=== PATIENT | female | born 1995 | race American Indian/Alaskan Native ===

== ENCOUNTER 2019-05-04 18:16 | Emergency (ER) | payer SELFPAY ==
--- NOTE | 2019-05-04 18:39 | Emergency Department Report ---
Blank Doc - Documentation Documentation: This is a 23-year-old female that presents with vaginal bleeding and pelvic pa in. This initial assessment/diagnostic orders/clinical plan/treatment(s) is/are subject to change based on patient's health status, clinical progression and re- assessment by fellow clinical providers in the ED. Further treatment and workup at subsequent clinical providers discretion. Patient/guardians urged not to elope from the ED as their condition may be serious if not clinically assessed and managed. Initial orders include: 1- Patient sent to [facility] for further evaluation and treatment 2- labs 3- UA
[2019-05-04 19:29] LABS: Hematocrit 36.5 % (30.3-42.9); Hemoglobin 11.9 gm/dl (10.1-14.3); Mean Corpuscular HGB Conc 33 % (30-34); Mean Corpuscular Volume 83 fl (79-97); Platelet Count 280 K/mm3 (140-440); Red Blood Count 4.41 M/mm3 (3.65-5.03); Red Cell Distribution Width 13.5 % (13.2-15.2)
[2019-05-04 19:37] LABS: Basophils % (Auto) 0.3 % (0.0-1.8); Eosinophils # (Auto) 0.1 K/mm3 (0.0-0.4); Eosinophils % (Auto) 0.9 % (0.0-4.3); Lymphocytes # (Auto) 3.3 K/mm3 (1.2-5.4); Lymphocytes % (Auto) 38.8 % (13.4-35.0); Monocytes # (Auto) 0.6 K/mm3 (0.0-0.8); Monocytes % (Auto) 6.4 % (0.0-7.3)
[2019-05-04 20:00] LABS: Bilirubin,Urine NEG (Negative); Blood,Urine NEG (Negative); Color,Urine Yellow (Yellow); Mucus,Urine 3+ /HPF; Urobilinogen,Urine < 2.0 mg/dL (<2.0)
[2019-05-04 21:03] VITALS: BP 99/54
[2019-05-04] MEDS ORDERED: ULTRAM PO ONE (21:56)
[2019-05-04] MEDS ORDERED: NACL 0.9% 1000 ML 1,000 ML IV ONE (21:57)
--- NOTE | 2019-05-04 22:02 | Emergency Department Report ---
ED Female HPI - General Chief complaint: Abdominal Pain Stated complaint: IRREGULAR BLEEDING/ABD PAIN Time Seen by Provider: 05/04/19 18:38 Source: patient Mode of arrival: Ambulatory Limitations: No Limitations - History of Present Illness Initial comments: This is a 23-year-old female that presents with vaginal bleeding and pelvic pain. pt states hx of AUB no concern for STI, no n/v no fever no chills states using 6 pads daily for 2 months , has not been able to secure [facility] appointment. Complaint: vaginal bleeding Onset/Timin -: month(s) Radiation: suprapubic Severity: moderate Severity scale (0 -10): 4 Quality: cramping Consistency: constant Improves with: none Worsens with: none Are you Now?: No Last Menstrual Period: 03/10/19 EDC: 12/15/19 Associated Symptoms: vaginal bleeding, abdominal pain (abdominal cramping ). denies: vaginal discharge, nausea/vomiting, fever/chills, dysuria, hematuria - Related Data Sexually active: Yes : 1 Para: 1 A: 0 Previous Rx's Medication Instructions Recorded Last Taken Type Ibuprofen [Motrin 800 MG tab] 800 mg PO Q8HR PRN #30 tablet 05/05/19 Unknown Rx Allergies Allergy/AdvReac Type Severity Reaction Status Date / Time Penicillins Allergy Swelling Verified 05/04/19 18:17 ED Review of Systems ROS: Stated complaint: IRREGULAR BLEEDING/ABD PAIN Other details as noted in HPI Constitutional: denies: chills, fever Eyes: denies: eye pain, eye discharge, vision change ENT: denies: ear pain, throat pain Respiratory: denies: cough, shortness of breath, wheezing Cardiovascular: denies: chest pain, palpitations Endocrine: no symptoms reported Gastrointestinal: abdominal pain. denies: nausea, vomiting, diarrhea Genitourinary: abnormal menses. denies: urgency, dysuria, frequency, hematuria, discharge Musculoskeletal: back pain. denies: joint swelling, arthralgia Skin: denies: rash, lesions Neurological: denies: headache, weakness, paresthesias Psychiatric: denies: anxiety, depression Hematological/Lymphatic: denies: easy bleeding, easy bruising ED Past Medical Hx - Past Medical History Previous Medical History?: No - Surgical History Additional Surgical History: c sect x 1 - Social History Smoking Status: Never Smoker Substance Use Type: None - Medications Home Medications: Home Medications Medication Instructions Recorded Confirmed Last Taken Type Ibuprofen [Motrin 800 MG tab] 800 mg PO Q8HR PRN #30 tablet 05/05/19 Unknown Rx ED Physical Exam - General Limitations: No Limitations General appearance: alert, in no apparent distress - Head Head exam: Present: atraumatic, normocephalic - Eye Eye exam: Present: normal appearance, PERRL Pupils: Present: normal accommodation - ENT ENT exam: Present: mucous membranes moist - Neck Neck exam: Present: normal inspection, full ROM. Absent: tenderness, lymphadenopathy, thyromegaly - Respiratory Respiratory exam: Present: normal lung sounds bilaterally. Absent: respiratory distress, wheezes, stridor, chest wall tenderness - Cardiovascular Cardiovascular Exam: Present: regular rate, normal rhythm, normal heart sounds. Absent: systolic murmur, diastolic murmur, rubs, gallop - GI/Abdominal GI/Abdominal exam: Present: soft, normal bowel sounds. Absent: distended, tenderness, guarding, rebound, rigid, bruit, hernia - Expanded GI/Abdominal Exam Expanded GI/Abdominal exam: Absent: psoas sign, obturator sign, heel tap sign, Alst's sign, Rovsing's sign, tenderness at Mcburney's Point, ascites - Rectal Rectal exam: Present: deferred - Extremities Exam Extremities exam: Present: normal inspection, full ROM, normal capillary refill. Absent: tenderness, pedal edema, joint swelling, calf tenderness - Back Exam Back exam: Present: normal inspection, full ROM. Absent: tenderness, CVA tenderness (R), CVA tenderness (L), muscle spasm, rash noted - Neurological Exam Neurological exam: Present: alert, oriented X3, CN II-XII intact, normal gait, reflexes normal. Absent: motor sensory deficit - Psychiatric Psychiatric exam: Present: normal affect, normal mood - Skin Skin exam: Present: warm, dry, intact, normal color. Absent: rash ED Course Vital Signs 05/04/19 05/04/19 18:39 21:02 Temperature 98.4 F 99.4 F Pulse Rate 68 55 L Respiratory 18 18 Rate Blood Pressure 118/80 Blood Pressure 99/54 [Left] O2 Sat by Pulse 100 100 Oximetry ED Medical Decision Making - Lab Data Result diagrams: 05/04/19 19:02 Labs 0705/04/19 05/04/19 18:50 19:02 19:02 WBC 8.7 RBC 4.41 Hgb 11.9 Hct 36.5 MCV 83 MCH 27 L MCHC 33 RDW 13.5 Plt Count 280 Lymph % (Auto) 38.8 H Stewart % (Auto) 6.4 Eos % (Auto) 0.9 Baso % (Auto) 0.3 Lymph # 3.3 Stewart # 0.6 Eos # 0.1 Baso # 0.0 Seg Neutrophils % 53.6 Seg Neutrophils # 4.6 HCG, Qual Negative Urine Color Yellow Urine Turbidity Clear Urine pH 5.0 Ur Specific [place] 1.036 H Urine Protein 30 mg/dl Urine Glucose (UA) Neg Urine Ketones Neg Urine Blood Neg Urine Nitrite Neg Urine Bilirubin Neg Urine Urobilinogen < 2.0 Ur Leukocyte Esterase Neg Urine WBC (Auto) 1.0 Urine RBC (Auto) 4.0 U Epithel Cells (Auto) 1.0 Urine Mucus 3+ - Radiology Data Radiology results: report reviewed, image reviewed Ordering Physician: ROBIN COLE NP Date of Service: 05/04/19 Procedure(s): US transvaginal Accession Number(s): [id number] cc: ROBIN COLE NP ULTRASOUND PELVIS INDICATION: Abdominal pain. Vaginal bleeding. TECHNIQUE: Transabdominal and Transvaginal. Duplex Color Doppler used: Yes. COMPARISON: None available FINDINGS: Uterus: Present. Size: 8.5 x 4.0 x 6.0 cm. Endometrial complex: Normal thickness, measuring 0.3 cm. A trace amount of fluid is present along the endometrial canal. Mass lesions: None. Additional findings: None. Right Ovary: Size: 2.3 x 2.1 x 1.8 cm Blood flow: Normal. Cyst or mass: None. Left Ovary: Size: 1.9 x 1.3 x 1.4 cm Blood flow: Normal. Cyst or mass: None. Urinary Bladder: Normal. Free Fluid: Minimal free fluid is likely physiologic. Additional Findings: None. IMPRESSION: No acute sonographic abnormality of the pelvis. Signer Name: Joshua Perkins MD Signed: 05/05/2019 12:15 AM Workstation Name: [id number] Transcribed By: HEMANTH Dictated By: Joshua Perkins MD Electronically Authenticated By: Joshua Perkins MD Signed Date/Time: 05/05/1914 DD/ TD/TT: - Medical Decision Making US normal no fibroids no ovarian cyst plan: ibuprofen prn pain follow up with [facility] in 2-3 days pt verbalized agreement and understanding of discharge plan. Critical care attestation.: If time is entered above; I have spent that time in minutes in the direct care of this critically ill patient, excluding procedure time. ED Disposition Clinical Impression: Abnormal uterine bleeding (AUB), Dysmenorrhea Disposition: TO HOME OR SELFCARE Is pt being admited?: No Condition: Fair Instructions: Dysmenorrhea (ED) Prescriptions: Ibuprofen [Motrin 800 MG tab] 800 mg PO Q8HR PRN #30 tablet PRN Reason: Pain , Severe (7-10) Referrals: [facility] MD LIZ [Primary Care Provider] - 3-5 Days Forms: Work/School Release Form(ED) Time of Disposition: 00:29
--- NOTE | 2019-05-05 00:20 | Ultrasound Report ---
ULTRASOUND PELVIS INDICATION: Abdominal pain. Vaginal bleeding. TECHNIQUE: Transabdominal and Transvaginal. Duplex Color Doppler used: Yes. COMPARISON: None available FINDINGS: Uterus: Present. Size: 8.5 x 4.0 x 6.0 cm. Endometrial complex: Normal thickness, measuring 0.3 cm. A trace amount of fluid is present along the endometrial canal. Mass lesions: None. Additional findings: None. Right Ovary: Size: 2.3 x 2.1 x 1.8 cm Blood flow: Normal. Cyst or mass: None. Left Ovary: Size: 1.9 x 1.3 x 1.4 cm Blood flow: Normal. Cyst or mass: None. Urinary Bladder: Normal. Free Fluid: Minimal free fluid is likely physiologic. Additional Findings: None. IMPRESSION: No acute sonographic abnormality of the pelvis. Signer Name: Joshua Perkins MD Signed: 05/05/2019 12:15 AM Workstation Name: [id number]
== END 2019-05-05 00:42 | disposition home or self-care (01) ==
LOC: ED 18:16
DX: N93.9 Abnormal uterine and vaginal bleeding, unspecified (principal); N94.6 Dysmenorrhea, unspecified; Z88.0 Allergy status to penicillin; Z79.1 Long term (current) use of non-steroidal anti-inflammatories (NSAID)
CPT/HCPCS: 36415; 76830; 76856; 81001; 84703; 85025; 99284; J7030

== ENCOUNTER 2019-09-25 10:43 | Emergency (ER) | payer SELFPAY ==
[2019-09-25 10:51] VITALS: BP 109/66
--- NOTE | 2019-09-25 11:45 | Emergency Department Report ---
Chief Complaint: Urogenital-Female Stated Complaint: VAGINAL IRRITATION Time Seen by Provider: 09/25/19 11:18 - HPI History of Present Illness: This is a 24-year-old female who presents to ED for vaginal irritation 2 days. Patient denies any nausea vomiting vaginal bleeding vaginal discharge or vaginal pain. Patient denies dysuria, fever, chills or abdominal pain - ROS Review of Systems: As noted in HPI - Exam Vital Signs: Vital Signs 09/25/19 10:49 Temperature 98.6 F Pulse Rate 66 Respiratory 18 Rate Blood Pressure 109/66 O2 Sat by Pulse 100 Oximetry Physical Exam: GENERAL: Alert and oriented x3, no apparent distress, Normal Gait, atraumatic. SKIN: Warm and dry, No lesions, No ulceration or induration present. MSE screening note: Focused history and physical exam performed. Due to findings the following was ordered: ED Medical Decision Making - Medical Decision Making 24-year-old female who presents for vaginal irritation with no other symptoms Discussed with the patient that this is not a medical emergency. Patient was given resources to [facility]/ Dr Watters's office for further evaluation. Patient understands instructions and states he will follow-up Vital signs are normal. She is in no acute distress ED Disposition for MSE Clinical Impression: Vaginal irritation Disposition: DC-01 TO HOME OR SELFCARE Is pt being admited?: No Does the pt Need Aspirin: No Condition: Stable Referrals: [facility] [Outside] - 3-5 Days [facility] [Outside] - 3-5 Days Forms: Work/School Release Form(ED) Time of Disposition: 11:51
== END 2019-09-25 11:58 | disposition home or self-care (01) ==
LOC: ED 10:43
DX: N89.8 Other specified noninflammatory disorders of vagina (principal); Z88.0 Allergy status to penicillin